=== PATIENT | female | born 1990 | race Caucasian/White ===

== ENCOUNTER 2017-07-29 07:28 | Emergency (ER) | END 2017-07-29 10:35 | disposition home or self-care (01) ==

== ENCOUNTER 2017-09-28 17:56 | Emergency (ER) | END 2017-09-28 20:06 | disposition home or self-care (01) ==

== ENCOUNTER 2017-09-28 23:18 | Inpatient (IN) | END 2017-09-30 15:40 | disposition home or self-care (01) | DRG 775 ==

== ENCOUNTER 2017-10-25 07:51 | Day surgery (SDC) | END 2017-10-25 15:46 | disposition home or self-care (01) ==